=== PATIENT | female | born 1965 | race Caucasian/White ===

== ENCOUNTER → 2018-09-15 | Outpatient (CLI) | payer BC ==
[2018-09-15 17:28] LABS: Basophils % (A) 0 %; Eosinophils # (A) 0.3 k/uL (0-0.7); Eosinophils % (A) 3 %; HCT 42.3 % (34.0-46.0); HGB 13.2 gm/dL (11.4-16.0); Lymphocytes # (A) 2.2 k/uL (1.0-4.8); Lymphocytes % (A) 29 %; MCH 25.5 pg (25.0-35.0); MCHC 31.2 g/dL (31.0-37.0); MCV 81.7 fL (80.0-100.0); Mean Platelet Volume 6.8; Monocytes # (A) 0.4 k/uL (0-1.0); Monocytes % (A) 6 %; Neutrophils # (A) 4.4 k/uL (1.3-7.7); Neutrophils % (A) 60 %; Platelet Count 263 k/uL (150-450); RBC 5.18 m/uL (3.80-5.40); RDW 14.4 % (11.5-15.5); WBC 7.4 k/uL (3.8-10.6)
== END | disposition home or self-care (01) ==
LOC: LABPAT 16:20
PROVIDERS: ATTEND Obstetrics & Gynecology
DX: Z01.812 Encounter for preprocedural laboratory examination (principal); N84.0 Polyp of corpus uteri; N93.8 Other specified abnormal uterine and vaginal bleeding
CPT/HCPCS: 85025

== ENCOUNTER 2018-10-09 07:54 | Day surgery (SDC) | payer BC ==
[2018-10-06 12:59] VITALS: BMI 26.6
[~2018-10-09 07:54] MED LIST: DEXAMETHASONE SOD PHOSPHATE 10 MG/ML 1 ML VIAL IV ONE; HYDROmorphone 0.5 MG/0.5 ML SYRINGE IVP PRN; LACTATED RINGERS 1,000 ML IV SCH; MIDAZOLAM (PF) 2 MG/2 ML VIAL IV PRN; ONDANSETRON 4 MG/2 ML VIAL IVP ONE; Pre Op ABX Message 1 EACH MISC MISCELLANE ONE; SCOPOLAMINE 1.5MG/72HR PATCH TRANSDERM ONE
[2018-10-09] MEDS ORDERED: LIDOCAINE 1% 20 ML VIAL (10MG/ML) FOR IV START INTRADERMA ONE (08:40)
[2018-10-09] MEDS ORDERED: LIDOCAINE 1% INJ 10MG/ML (20 ML MDV) ONE (08:44)
[2018-10-09] MEDS ORDERED: PROPOFOL 10 MG/ML 20 ML VIAL IV ONE (08:44)
[2018-10-09] MEDS ORDERED: MIDAZOLAM 2 MG/2 ML VIAL ONE (08:44)
[2018-10-09] MEDS ORDERED: fentaNYL (PF) 50 MCG/ML 2 ML AMP ONE (08:44)
[2018-10-09] MEDS ORDERED: KETOROLAC 30 MG/ML 1 ML VIAL ONE (08:44)
[2018-10-09] MEDS ORDERED: Acetaminophen-Codeine 300-30mg TAB PO PRN ×2 (08:52)
[2018-10-09] MEDS ORDERED: diphenhydrAMINE 50 MG/ML 1 ML VIAL IVP PRN (08:52)
[2018-10-09] MEDS ORDERED: SIMETHICONE 80 MG CHEWABLE PO PRN (08:52)
[2018-10-09] MEDS ORDERED: ONDANSETRON 4 MG/2 ML VIAL IVP PRN (08:52)
[2018-10-09] MEDS ORDERED: KETOROLAC 30 MG/ML 1 ML VIAL IVP PRN (08:52)
[2018-10-09] MEDS ORDERED: METOCLOPRAMIDE 5 MG/ML 2 ML VIAL IVP PRN (08:52)
[2018-10-09] MEDS ORDERED: LACTATED RINGERS 1,000 ML IV SCH (09:00)
[2018-10-09] MEDS ORDERED: LACTATED RINGERS 1,000 ML IV ONE (09:15)
--- NOTE | 2018-10-09 09:23 | P.OP ---
Date of Procedure: 10/09/18 Preoperative Diagnosis: #1. Dysfunctional uterine bleeding #2. Menorrhagia #3. Possible endometrial polyp Postoperative Diagnosis: Same Procedure(s) Performed: #1. Diagnostic hysteroscopy #2. Dilation and curettage Anesthesia: other (Gen. by LMA) Surgeon: [place] Jansen Estimated Blood Loss (ml): 5 IV fluids (ml): 800 Urine output (ml): 50 Pathology: other (Endometrial curettings) Condition: stable Disposition: PACU Operative Findings: Preoperative pelvic examination demonstrated a roughly 5-6 weeks slightly anteverted mobile normal shaped uterus with normal adnexa bilaterally. Intraoperatively, the uterus sounded to approximately 9-10 cm. Hysteroscopy failed to demonstrate any obvious polypoid structures other was some shaggy endometrium present. The bilateral tubal ostia regions were seen. There was no evidence of any intrauterine pathology with the hysteroscope. A [id number] amount of tissue was removed with the sharp curet and the typical gritty texture was encountered throughout. The patient is a possible candidate for vaginal hysterectomy should become necessary. Description of Procedure: The patient was prepped and draped in usual fashion after general anesthesia was a project administrator by the anesthesiologist. A weighted speculum was placed and the bladder was draining approximately 50 mL of clear caleb urine. The anterior lip the cervix was grasped with a single-tooth tenaculum and uterus was sounded to 9-10 cm as noted above. Serial dilation was carried out to admit the diagnostic hysteroscope which was placed to the fundus and the cavity distended with elsy ine. No polypoid structures were necessarily noted though there was some shaggy endometrium. After adequate hysteroscopy had been carried out, the scope was set aside and the sharp curet placed into the uterus. Thorough circumferential curettage was carried out with tissue brought onto a Telfa in the vagina. There was a small to moderate amount of tissue produced. A polyp forceps was then uti lized with removal of some loose tissue but no obvious polypoid structures. One last pass was made with a sharp curet producing no further tissue. All instrumentation was removed. Estimated blood loss for the case was 5 mL or less. There are no complications. All sponge, instrument, and needle counts were correct. The patient tolerated the procedure well and proceeded to the recovery room in stable condition.
[2018-10-09 09:31] VITALS: TEMP 97
[2018-10-09 10:24] VITALS: RESP 18
[2018-10-09 10:33] VITALS: BP 143/87; PULSE 61
== END 2018-10-09 10:45 | disposition home or self-care (01) ==
LOC: OR 07:54
PROVIDERS: ATTEND Obstetrics & Gynecology
DX: N84.0 Polyp of corpus uteri (principal); N93.8 Other specified abnormal uterine and vaginal bleeding
CPT/HCPCS: 81025; 58558; 88305; J2250; J1100; J2405; J2001; J3010; J1885; J2704

== ENCOUNTER 2023-04-18 09:05 | Day surgery (SDC) | payer BC ==
[2023-04-16 14:26] VITALS: BMI 28.7
[~2023-04-18 09:05] MED LIST changes: -DEXAMETHASONE SOD PHOSPHATE 10 MG/ML 1 ML VIAL IV ONE; -HYDROmorphone 0.5 MG/0.5 ML SYRINGE IVP PRN; -MIDAZOLAM (PF) 2 MG/2 ML VIAL IV PRN; -ONDANSETRON 4 MG/2 ML VIAL IVP ONE; -Pre Op ABX Message 1 EACH MISC MISCELLANE ONE; -SCOPOLAMINE 1.5MG/72HR PATCH TRANSDERM ONE
[2023-04-18 09:29] VITALS: TEMP 97.1
[2023-04-18] MEDS ORDERED: PROPOFOL 10 MG/ML 20 ML VIAL IV ONE (10:08)
[2023-04-18] MEDS ORDERED: LIDOCAINE 1% INJ 10MG/ML (20 ML MDV) ONE (10:08)
--- NOTE | 2023-04-18 10:32 | P.PCN ---
Date of Procedure: 04/18/23 Procedure(s) Performed: Brief history: Patient is a pleasant 57-year-old pleasant white female scheduled for an elective upper endoscopy as well as colonoscopy as a part of evaluation ofof GERD and screening for colon cancer Procedure performed: Esophagogastroduodenoscopy with biopsy Colonoscopy with biopsy Preoperative diagnosis: GERD Screening for colon cancer Anest[place]: [facility] [place] Procedure: After informed consent was obtained from the patient was brought into the endoscopy unit and IV sedation was administered by anesthesia under continuous monitoring. Initially upper endoscopy was done. The Olympus GF 160 video endoscope was inserted inserted into the mouth and esophagus intubated without any difficulty and was gradually advanced into the stomach and duodenum and carefully examined. The bulb and second part of the duodenum appeared normal. The scope was then withdrawn into the stomach adequately insufflated with air and upon careful examination the antrum had mild gastritis and biopsies were done from this area. Multiple gastric polyps noted in the gastric body which were biopsied. Mucosa of the body, cardia and fundus appeared normal. The scope was then withdrawn into the esophagus. Small hiatal hernia noted. The GE junction was located at 40 cm to the incisors. A linear erosions in the distal esophagus consistent with LA grade B reflux esophagitis Rest of the esophagus appeared normal. Patient tolerated the procedure well. At this time the patient continued to remain sedation. Initial digital rectal examination was normal. Olympus CF 160 video colonoscope was then inserted into the rectum and gradually advanced to the cecum without any difficulty. Careful examination was performed as the scope was gradually being withdrawn. The prep was excellent. The cecum, ascending colon, transverse colon, appeared normal. In the descending colon there was a 3 mm polyp that was removed by cold biopsy. Rest of the descending colon, sigmoid colon and rectum appeared normal. Retroflexion was performed in the rectum and no lesions were noted. Patient emeterio erated the procedure well. Impression: 1. Upper endoscopy revealed linear erosions in the distal esophagus consistent with LA grade B reflux esophagitis, small hiatal hernia, mild antral gastritis a nd multiple gastric polyps 2. Colonoscopy revealed a 3 mm descending colon polyp status post removal by cold biopsy and the rest of the colon appeared normal Recommendations: Findings of this examination were discussed with the patient as well as as well as a family. Follow with the biopsy results. She was advised to continue with omeprazole 20 mg every day and follow by antireflux measures. Recommend repeat screening colonoscopy in 10 years.
[2023-04-18 11:03] VITALS: BP 123/83; PULSE 74; RESP 20
== END 2023-04-18 11:05 ==
LOC: ORWHC2ENDO 09:05
PROVIDERS: ATTEND Internal Medicine Gastroenterology
DX: Z12.11 Encounter for screening for malignant neoplasm of colon (principal); K29.50 Unspecified chronic gastritis without bleeding; K31.7 Polyp of stomach and duodenum; K63.5 Polyp of colon; K21.00 Gastro-esophageal reflux disease with esophagitis, without bleeding; K44.9 Diaphragmatic hernia without obstruction or gangrene; Z98.51 Tubal ligation status
CPT/HCPCS: 81025; 88305; 88342; 45380; 43239; J2001; J2704